=== PATIENT | male | born 1955 | race Caucasian/White ===

== ENCOUNTER 2024-12-13 08:24 | Outpatient (CLI) | payer MEDICARE, OTHER ==
[~2024-12-13] VITALS: Ht 162.6 cm; Wt 67.1 kg
[2024-12-13] MEDS: albuterol 2.5 MG/3 ML nebule NEB ONE (09:26)
[2024-12-13 09:28] VITALS: PULSE 49; RESP 15; O2SAT 98
[2024-12-13 09:41] VITALS: PULSE 46; RESP 15
== END 2024-12-13 23:59 | disposition home or self-care (01) ==
LOC: RT 08:24
PROVIDERS: ATTEND Nurse Practitioner Family
DX: R06.02 Shortness of breath (principal)
CPT/HCPCS: 94060; 94760; J7120